=== PATIENT | female | born 1975 | race Caucasian/White ===

== ENCOUNTER → 2023-02-05 | Outpatient (CLI) | payer OTHER | END | disposition home or self-care (01) | LOC: LAB 14:35 → LAB SHORT 14:35 | DX: R19.7 Diarrhea, unspecified (principal); R19.5 Other fecal abnormalities | CPT/HCPCS: 82653 ==

== ENCOUNTER → 2023-02-13 | Outpatient (CLI) | payer OTHER ==
[2023-02-15 15:12] LABS: HPV 16 Negative (Negative); HPV 18 Negative (Negative); HPV OTHER HR TYPES Negative (Negative)
== END ==
LOC: LAB SHORT 10:15 → LAB 10:15
PROVIDERS: Nurse Practitioner Family
DX: Z01.419 Encounter for gynecological examination (general) (routine) without abnormal findings (principal)
CPT/HCPCS: 87624; G0145

== ENCOUNTER 2023-05-26 10:08 | Day surgery (SDC) | payer OTHER ==
[~2023-05-26] VITALS: Ht 157.5 cm; Wt 96.5 kg
[~2023-05-26 10:08] MED LIST: ATOR20 PO; LOSA50 PO; Lactated Ringer's 1,000 ML IV SCH; OMEP20ER PO; OZEMPIC0.25 MG/02 SQ
[2023-05-26 10:48] VITALS: BP 159/113; BP 163/127
--- NOTE | 2023-05-26 11:11 | NUR ---
Ambulatory in Day Surgery WITH STEADY GAIT, ABLE TO USE RESTROOM INDEPENDENTLY. History, Chart, Medications and Allergies reviewed before start of procedure. Lungs clear T/O to Auscultation. Patient confirms NPO status and agrees with scheduled surgery. Pre-Op teaching done. Pt verbalizes understanding. Patient States Post-Procedure ride home has been arranged WITH SPOUSE.
--- NOTE | 2023-05-26 11:55 | NUR ---
PT INFORMED OF DELAY IN PROCEDURE DUE TO NEEDING TO BE A MAC CASE INSTEAD OF RN SEDATION AFTER CONSULT WITH DR TELLEZ. DR RAMIREZ INFORMED AND AGREES. CALL LIGHT IN REACH. SPOUSE AT BEDSIDE.
[2023-05-26] MEDS ORDERED: Midazolam HCL 1 MG/ML 5MLVIAL ONE (12:47)
[2023-05-26] MEDS ORDERED: FentaNYL Citrate 50 MCG/ML 2 ML Injection ONE (12:48)
[2023-05-26] MEDS ORDERED: propofoL 20 ML IV ONE (12:48)
--- NOTE | 2023-05-26 12:52 | NUR ---
05/26/23 1252 Ginger Olguin HISTORY, CHART, MEDICATIONS AND ALLERGIES REVIEWED BEFORE START OF PROCEDURE. PATIENT CONFIRMS NPO STATUS AND AGREES WITH SCHEDULED PROCEDURE. 3-LEAD EKG REVIEWED WITH PHYSICIAN PRIOR TO START OF PROCEDURE. MONITOR INTACT WITH CONTINUOUS PULSE OXIMETRY,CAPNOGRAPHY, 3-LEAD EKG, INTERMITTENT BP. SUPPLEMENTAL O2 TO BE TITRATED THROUGHOUT PROCEDURE TO MAINTAIN O2 SATURATION ABOVE 90%. See Anesthesia record WITH DR TELLEZ.
[2023-05-26 13:37] VITALS: BP 140/105
--- NOTE | 2023-05-26 13:40 | NUR ---
DR TELLEZ AT BEDSIDE. PATIENT INSTRUCTED TO TAKE HER PRESCRIBED BP MEDICATION PRESCRIBED WHEN SHE GETS HOME TO ADDRESS HTN. DR TELLEZ INSTRUCTED THIS NURSE NO MEDICATIONS FOR HTN NEEDED AT THIS TIME.
--- NOTE | 2023-05-26 13:48 | NUR ---
DR RAMIREZ AT BEDSIDE REVIEWING RESULTS OF PROCEDURES AND FOLLOW-UP INSTRUCTIONS. AT BEDSIDE.
[2023-05-26 13:49] VITALS: BP 143/91
[2023-05-26 14:00] VITALS: BP 144/97
--- NOTE | 2023-05-26 14:10 | NUR ---
Discharge instructions reviewed with patient. Patient verbalizes understanding. Copy given to patient to take home.
== END 2023-05-26 14:19 | disposition home or self-care (01) ==
LOC: ORSCMMR 10:08 → ORD 11:45 → ORSCMMR 11:45 → ORD 12:30 → ORSCSDS 12:30 → ORSCMMR 14:19
PROVIDERS: Internal Medicine Gastroenterology
PROC: 0DB98ZX Excision of Duodenum, Via Natural or Artificial Opening Endoscopic, Diagnostic (ICD-10-PCS; principal; 2023-05-26 11:45)
PROC: 0DB68ZX Excision of Stomach, Via Natural or Artificial Opening Endoscopic, Diagnostic (ICD-10-PCS; principal; 2023-05-26 11:45)
PROC: 0DBP8ZX Excision of Rectum, Via Natural or Artificial Opening Endoscopic, Diagnostic (ICD-10-PCS; principal; 2023-05-26 11:45)
PROC: 0DBL8ZX Excision of Transverse Colon, Via Natural or Artificial Opening Endoscopic, Diagnostic (ICD-10-PCS; principal; 2023-05-26 11:45)
DX: R19.7 Diarrhea, unspecified (principal); D12.3 Benign neoplasm of transverse colon; K62.1 Rectal polyp; K57.30 Diverticulosis of large intestine without perforation or abscess without bleeding; K64.4 Residual hemorrhoidal skin tags; I10 Essential (primary) hypertension; E11.9 Type 2 diabetes mellitus without complications; E78.5 Hyperlipidemia, unspecified; K31.A0 Gastric intestinal metaplasia, unspecified; E66.9 Obesity, unspecified; Z68.39 Body mass index [BMI] 39.0-39.9, adult; Z79.85 Long-term (current) use of injectable non-insulin antidiabetic drugs; Z79.899 Other long term (current) drug therapy
CPT/HCPCS: 82947; 88305; 88342; J2250; J2704; J3010; J7120